=== PATIENT | male | born 1950 | race Caucasian/White ===

== ENCOUNTER → 2020-11-20 | Outpatient (CLI) | payer MEDICARE | LOC: LAB 20:56 | DX: C61 Malignant neoplasm of prostate (principal) | CPT/HCPCS: 84153 ==

== ENCOUNTER → 2021-08-25 | Outpatient (CLI) | payer MEDICARE ==
[2021-08-26 10:14] LABS: TESTOSTERONE, SERUM <3 ng/dL (264-916)
== END ==
LOC: LAB 12:36
PROVIDERS: Urology
DX: C61 Malignant neoplasm of prostate (principal)
CPT/HCPCS: 36415; 84153; 84403

== ENCOUNTER 2021-09-29 19:13 | Emergency (ER) | payer MEDICARE ==
[2021-09-29 21:58] LABS: HEMOGLOBIN 10.7 gm/dl (14.0-17.5); RED BLOOD COUNT 3.5 M/UL (4.20-5.50); WHITE BLOOD COUNT 8.3 K/UL (4.5-11.0)
[2021-09-29 22:26] LABS: BUN/CREATININE RATIO 18 (0-10)
[2021-09-30 01:30] LABS: RED BLOOD COUNT 3.68 M/UL (4.20-5.50); WHITE BLOOD COUNT 7.6 K/UL (4.5-11.0)
[2021-09-30 01:48] LABS: BUN/CREATININE RATIO 18 (0-10)
[2021-09-30] MEDS ORDERED: PERCOCET 5/325 T1 EA PO (03:29)
== END 2021-09-30 03:40 | disposition home or self-care (01) ==
LOC: ER1 19:13
PROVIDERS: Family Medicine; Nurse Practitioner
DX: R31.9 Hematuria, unspecified (principal); F17.210 Nicotine dependence, cigarettes, uncomplicated; Z79.82 Long term (current) use of aspirin
CPT/HCPCS: 80048; 80053; 81001; 85025; 85610; 99283

== ENCOUNTER 2021-10-16 13:52 | Emergency (ER) | payer MEDICARE ==
[~2021-10-16 13:52] MED LIST: PERCOCET 5/325 T1 EA PO
[2021-10-16 15:48] LABS: RED BLOOD COUNT 2.26 M/UL (4.20-5.50); WHITE BLOOD COUNT 7.8 K/UL (4.5-11.0)
[2021-10-16 16:05] LABS: BUN/CREATININE RATIO 18 (0-10)
[2021-10-16 16:13] LABS: HEMOGLOBIN 6.9 gm/dl (14.0-17.5)
== END 2021-10-16 20:15 | disposition home or self-care (01) ==
LOC: ER1 13:52
PROVIDERS: Emergency Medicine
DX: N30.90 Cystitis, unspecified without hematuria (principal); R33.9 Retention of urine, unspecified; D62 Acute posthemorrhagic anemia; Z20.822 Contact with and (suspected) exposure to COVID-19; F17.200 Nicotine dependence, unspecified, uncomplicated; Z85.46 Personal history of malignant neoplasm of prostate
CPT/HCPCS: 51702; 80048; 81001; 85025; 86850; 86900; 86901; 86920; 96374; 96375; 96376; 99284; J2270; J2405; U0002

== ENCOUNTER 2022-02-11 09:32 | Emergency (ER) | payer MEDICARE ==
[2022-02-11 10:49] LABS: HEMOGLOBIN 9.6 gm/dl (14.0-17.5); RED BLOOD COUNT 3.64 M/UL (4.20-5.50); WHITE BLOOD COUNT 7.9 K/UL (4.5-11.0)
[2022-02-11 11:14] LABS: BUN/CREATININE RATIO 22 (0-10)
[2022-02-11] MEDS ORDERED: OMNICEF 300 MG300 MG PO (14:46)
== END 2022-02-11 15:19 | disposition home or self-care (01) ==
LOC: ER1 09:32
PROVIDERS: Emergency Medicine
DX: R33.9 Retention of urine, unspecified (principal); R31.9 Hematuria, unspecified; E78.5 Hyperlipidemia, unspecified; F17.200 Nicotine dependence, unspecified, uncomplicated; Z51.81 Encounter for therapeutic drug level monitoring
CPT/HCPCS: 80053; 81001; 85025; 85610; 85730; 87086; 99284; J7030

== ENCOUNTER 2022-02-12 11:53 | Emergency (ER) | payer MEDICARE ==
[~2022-02-12 11:53] MED LIST changes: +OMNICEF 300 MG300 MG PO
[2022-02-12 15:42] LABS: HEMOGLOBIN 8.9 gm/dl (14.0-17.5); RED BLOOD COUNT 3.36 M/UL (4.20-5.50); WHITE BLOOD COUNT 6.9 K/UL (4.5-11.0)
[2022-02-12 16:09] LABS: BUN/CREATININE RATIO 22 (0-10)
== END 2022-02-12 21:56 | disposition home or self-care (01) ==
LOC: ER1 11:53
PROVIDERS: Physician Assistant Medical
DX: R31.9 Hematuria, unspecified (principal); D64.9 Anemia, unspecified; J44.9 Chronic obstructive pulmonary disease, unspecified; F17.210 Nicotine dependence, cigarettes, uncomplicated
CPT/HCPCS: 80053; 81001; 85025; 87086; 99283

== ENCOUNTER → 2022-03-05 | Emergency (ER) | payer MEDICARE ==
[2022-03-05 08:09] LABS: HEMOGLOBIN 7.5 gm/dl (14.0-17.5); RED BLOOD COUNT 2.79 M/UL (4.20-5.50); WHITE BLOOD COUNT 9.2 K/UL (4.5-11.0)
[2022-03-05 12:41] LABS: HEMOGLOBIN 7.2 gm/dl (14.0-17.5); RED BLOOD COUNT 2.67 M/UL (4.20-5.50); WHITE BLOOD COUNT 8.3 K/UL (4.5-11.0)
== END | disposition home or self-care (01) ==
LOC: ER1 03:56
PROVIDERS: Emergency Medicine
DX: R31.9 Hematuria, unspecified (principal); D64.9 Anemia, unspecified; F17.210 Nicotine dependence, cigarettes, uncomplicated; Z85.46 Personal history of malignant neoplasm of prostate; Z79.82 Long term (current) use of aspirin
CPT/HCPCS: 85025; 86850; 86900; 86901; 86920; 99284; P9016